=== PATIENT | female | born 1995 | race Caucasian/White ===

== ENCOUNTER 2019-06-12 11:18 | Outpatient (CLI) | payer OTHER ==
--- NOTE | 2019-06-12 15:30 | CT Report ---
Reason: RIGHT FLANK PAIN Procedure Date: 06/12/2019 Accession Number: [id number] / [id number] Procedure: CT - Abdomen/Pelvis WO CPT Code: Addended Final Report FULL RESULT: EXAM: CT ABDOMEN AND PELVIS (CT KUB) EXAM DATE: 06/12/2019 03:09 PM. CLINICAL HISTORY: RIGHT FLANK PAIN. COMPARISONS: None. TECHNIQUE: Routine axial helical CT imaging was performed through the abdomen and pelvis without IV contrast. Reconstructions: Coronal and sagittal. In accordance with CT protocol optimization, one or more of the following dose reduction techniques were utilized for this exam: automated exposure control, adjustment of mA and/or KV based on patient size, or use of iterative reconstructive technique. FINDINGS: Lung Bases: Unremarkable. Right Kidney/Ureter: No stones, hydronephrosis, or hydroureter. No perinephric fat stranding. Left Kidney/Ureter: No stones, hydronephrosis, or hydroureter. No perinephric fat stranding. Other Solid Organs: Noncontrast images of the solid organs are grossly unremarkable. Gallbladder/Bile Ducts: Unremarkable. Peritoneal Cavity: No free fluid, free air or rubina adenopathy. Bowel is grossly unremarkable. Pelvic Organs: No bladder stones or wall thickening. Noncontrast images of the visualized pelvic organs are unremarkable. Vasculature: Unremarkable. Other: There is trace free fluid in the right posterior cul-de-sac, presumed physiologic. IMPRESSION: No urinary tract stones or obstruction. No ovarian cyst or bowel obstruction identified. No evidence of appendicitis. Trace free fluid in the right posterior cul-de-sac, presumed physiologic. RADIA The call report notification system was initiated by Dr. Evan Munoz at 03:28 PM on 06/12/2019. ADDENDUM: 06/12/19 15:36 The above call report findings were discussed with Dr Rosa's nurse by Dr. Evan Munoz at 03:36 PM on 06/12/2019.
== END 2019-06-12 11:19 | disposition home or self-care (01) ==
LOC: DI 11:18
PROVIDERS: ATTEND Urology
DX: R10.9 Unspecified abdominal pain (principal); Z87.440 Personal history of urinary (tract) infections
CPT/HCPCS: 74176; 81001; 87086; 87181

== ENCOUNTER 2019-06-12 14:32 | Outpatient (CLI) | payer OTHER ==
[2019-06-12 15:20] LABS: BILIRUBIN,URINE NEGATIVE (NEGATIVE); GLUCOSE, URINE (UA) NEGATIVE (NEGATIVE); KETONES,URINE (UA) NEGATIVE (NEGATIVE); LEUKOCYTE ESTERASE, URINE MODERATE (NEGATIVE); NITRITE,URINE POSITIVE (NEGATIVE); OCCULT BLOOD,URINE LARGE (NEGATIVE); PH,URINE 6.5 PH (5.0-7.5); PROTEIN,URINE >=300 mg/dL (NEGATIVE); UROBILINOGEN,URINE 0.2 (NORMAL) E.U./dL (NORMAL)
[2019-06-12 15:30] LABS: BACTERIA,URINE Many /HPF (None Seen); CLARITY,URINE CLOUDY (CLEAR); SQUAMOUS EPITHELIAL CELL,UR RARE Squamous (<= Few); WBC CLUMPS,URINE PRESENT
== END 2019-06-12 14:33 | disposition home or self-care (01) ==
LOC: LAB 14:32
PROVIDERS: ATTEND Urology
DX: R10.9 Unspecified abdominal pain (principal); Z87.440 Personal history of urinary (tract) infections
CPT/HCPCS: 81001; 87086; 87181

== ENCOUNTER 2020-01-24 19:03 | Emergency (ER) | payer OTHER ==
--- NOTE | 2020-01-24 19:30 | ED Physician Documentation ---
PD HPI NVD - Stated complaint Stated Complaint: NAUSEA,FATIGUE,VOMITING - Chief complaint Chief Complaint: Abd Pain - History obtained from History obtained from: Patient - Additonal information Additional information: 24-year-old G1, P1 presents with 3 weeks of generally worsening nausea converting to some vomiting about a week ago with occasional pelvic cramping and back pain. No breast tenderness. No fevers, sore throat. She has had some headaches but generally when she is at work due to stress. Is not quite sure when her last menses was, does not track it per se. Sounds like she is probably late though, has not had a test. Review of Systems Constitutional: reports: Fatigue. denies: Fever, Chills Ears: denies: Ear pain Nose: denies: Rhinorrhea / runny nose Throat: denies: Sore throat Cardiac: denies: Chest pain / pressure, Palpitations Respiratory: denies: Dyspnea, Cough GI: denies: Abdominal Pain PD PAST MEDICAL HISTORY - Past Medical History Past Medical History: Yes - Past Surgical History Past Surgical History: No - Present Medications Home Medications: Ambulatory Orders Medication Instructions Recorded Confirmed Metoclopramide [Reglan] 10 mg PO Q6H PRN #20 tablet 01/24/20 Multivitamin with Folic Acid [High 400 mcg PO DAILY #90 tablet 01/24/20 Potency Multivitamin Tab] - Allergies Allergies/Adverse Reactions: Allergies Allergy/AdvReac Type Severity Reaction Status Date / Time clindamycin Allergy Unknown Verified 01/24/20 19:22 - Social History Does the pt smoke?: No Smoking Status: Never smoker Does the pt drink ETOH?: No Does the pt have substance abuse?: No - Immunizations Immunizations are current?: Yes PD ED PE NORMAL - Vitals Vital signs reviewed: Yes - General General: Alert and oriented X 3, No acute distress - HEENT HEENT: PERRL, EOMI - Neck Neck: Supple, no meningeal sign, No bony TTP - Cardiac Cardiac: RRR, No murmur - Respiratory Respiratory: No respiratory distress, Clear bilaterally - Abdomen Abdomen: Normal bowel sounds, Soft, Non tender - Back Back: No spinal TTP - Derm Derm: Normal color, Warm and dry - Extremities Extremities: No edema, No calf tenderness / cord - Neuro Neuro: Alert and oriented X 3, Normal speech Results - Vitals Vitals: Vital Signs - 24 hr 01/24/20 19:11 Temperature 36.9 C Heart Rate 102 H Respiratory 18 Rate Blood Pressure 131/75 H O2 Saturation 100 Oxygen O2 Source Room air - Labs Labs: Laboratory Tests 01/24/20 01/24/20 01/24/20 19:21 19:23 19:23 WBC 7.8 RBC 4.66 Hgb 13.9 Hct 40.5 MCV 86.9 MCH 29.8 MCHC 34.3 RDW 12.5 Plt Count 270 MPV 8.8 Neut # (Auto) 5.5 Lymph # (Auto) 1.6 Webb # (Auto) 0.5 Eos # (Auto) 0.1 Baso # (Auto) 0.0 Absolute Nucleated RBC 0.00 Nucleated RBC % 0.0 Sodium Potassium Chloride Carbon Dioxide Anion Gap BUN Creatinine Estimated GFR (MDRD) Glucose Calcium Total Bilirubin AST ALT Alkaline Phosphatase Total Protein Albumin Globulin Albumin/Globulin Ratio Lipase Urine Color YELLOW Urine Clarity SL. CLOUDY Urine pH 7.0 Ur Specific [place] 1.020 Urine Protein NEGATIVE Urine Glucose (UA) NEGATIVE Urine Ketones NEGATIVE Urine Occult Blood NEGATIVE Urine Nitrite NEGATIVE Urine Bilirubin NEGATIVE Urine Urobilinogen 0.2 (NORMAL) Ur Leukocyte Esterase TRACE H Ur Microscopic Review INDICATED Urine Culture Comments Not Reportable Urine HCG, Qual POSITIVE Infectious Webb Assay NEGATIVE 01/24/20 19:23 WBC RBC Hgb Hct MCV MCH MCHC RDW Plt Count MPV Neut # (Auto) Lymph # (Auto) Webb # (Auto) Eos # (Auto) Baso # (Auto) Absolute Nucleated RBC Nucleated RBC % Sodium 135 Potassium 3.2 L Chloride 102 Carbon Dioxide 24 Anion Gap 9.0 BUN 8 Creatinine 0.5 Estimated GFR (MDRD) 153 Glucose 134 H Calcium 9.6 Total Bilirubin 1.4 H AST 15 ALT 12 Alkaline Phosphatase 58 Total Protein 7.8 Albumin 4.3 Globulin 3.5 Albumin/Globulin Ratio 1.2 Lipase 27 Urine Color Urine Clarity Urine pH Ur Specific [place] Urine Protein Urine Glucose (UA) Urine Ketones Urine Occult Blood Urine Nitrite Urine Bilirubin Urine Urobilinogen Ur Leukocyte Esterase Ur Microscopic Review Urine Culture Comments Urine HCG, Qual Infectious Webb Assay PD MEDICAL DECISION MAKING - ED course ED course: She presents with nausea and worsening vomiting with unknown last menses and is found to be . She does not desire this , and would like to exp saad options for termination. I discussed the case with Dr. Deisy Yeung, OB on-call. They do do medical abortions, and Deisy will see her tomorrow to discuss options. Departure - Departure Disposition: Home, Self Care Clinical Impression: Qualifiers: Weeks of gestation: unspecified Qualified Code(s): Z34.90 - Encounter for supervision of normal , unspecified, unspecified trimester Condition: Good Record reviewed to determine appropriate education?: Yes Instructions: ED Preg Established Normal Sxs Follow-Up: Deisy Yeung MD [Provider Admit Priv/Credential] - Prescriptions: Multivitamin with Folic Acid [High Potency Multivitamin Tab] 400 mcg PO DAILY #90 tablet Metoclopramide [Reglan] 10 mg PO Q6H PRN #20 tablet PRN Reason: nausea or headache Comments: Dr. Deisy Yeung would like to see you tomorrow at 1230 in her office to discuss options. She is aware of your case. The phone number and address are above.
[2020-01-24 19:34] LABS: BASOPHILS % (AUTO) 0.4 %; EOSINOPHILS # (AUTO) 0.1 10^3/uL (0.0-0.7); EOSINOPHILS % (AUTO) 1.3 %; HGB - HEMOGLOBIN 13.9 g/dL (12.0-16.0); LYMPHOCYTES # (AUTO) 1.6 10^3/uL (1.5-3.5); LYMPHOCYTES % (AUTO) 20.8 %; MEAN CORPUSCULAR HEMOGLOBIN 29.8 pg (27.0-31.0); MEAN CORPUSCULAR HGB CONC 34.3 g/dL (32.0-36.0); MEAN CORPUSCULAR VOLUME 86.9 fL (81.0-99.0); MEAN PLATELET VOLUME 8.8 fL (7.9-10.8); MONOCYTES # (AUTO) 0.5 10^3/uL (0.0-1.0); MONOCYTES % (AUTO) 5.9 %; NEUTROPHILS # (AUTO) 5.5 10^3/uL (1.5-6.6); NEUTROPHILS % (AUTO) 71.2 %; PLT - PLATELET COUNT 270 10^3/uL (130-450); RED BLOOD COUNT 4.66 10^6/uL (4.20-5.40); RED CELL DISTRIBUTION WIDTH 12.5 % (12.0-15.0); WHITE BLOOD COUNT 7.8 x10^3/uL (4.8-10.8)
[2020-01-24 19:41] LABS: BILIRUBIN,URINE NEGATIVE (NEGATIVE); GLUCOSE, URINE (UA) NEGATIVE (NEGATIVE); KETONES,URINE (UA) NEGATIVE (NEGATIVE); LEUKOCYTE ESTERASE, URINE TRACE (NEGATIVE); NITRITE,URINE NEGATIVE (NEGATIVE); OCCULT BLOOD,URINE NEGATIVE (NEGATIVE); PROTEIN,URINE NEGATIVE (NEGATIVE); UROBILINOGEN,URINE 0.2 (NORMAL) E.U./dL (NORMAL)
[2020-01-24 19:42] LABS: CLARITY,URINE SL. CLOUDY (CLEAR); HCG UR QUAL POSITIVE
[2020-01-24 19:47] LABS: ALBUMIN 4.3 g/dL (3.2-5.5); ALBUMIN/GLOBULIN RATIO 1.2 (1.0-2.2); BILIRUBIN,TOTAL 1.4 mg/dL (0.2-1.0); CALCIUM 9.6 mg/dL (8.5-10.3); CREATININE 0.5 mg/dL (0.4-1.0); TOTAL PROTEIN 7.8 g/dL (6.7-8.2)
[2020-01-24 20:21] LABS: RBC,URINE None Seen /HPF (0-5); SQUAMOUS EPITHELIAL CELL,UR MOD Squamous (<= Few)
[2020-01-24 20:22] LABS: BACTERIA,URINE Many /HPF (None Seen); MUCUS,URINE Moderate Strands
[2020-01-24 20:25] VITALS: BP 118/83
== END 2020-01-24 20:25 | disposition home or self-care (01) ==
LOC: ED 19:03
DX: O21.0 Mild hyperemesis gravidarum (principal); Z3A.00 Weeks of gestation of pregnancy not specified
CPT/HCPCS: 36415; 80053; 81001; 81003; 81025; 83690; 85025; 86308; 87086; 99283; 99284

== ENCOUNTER 2020-01-25 13:31 | Outpatient (CLI) | payer OTHER | END 2020-01-25 13:32 | disposition home or self-care (01) | LOC: LAB 13:31 | PROVIDERS: ATTEND Obstetrics & Gynecology | DX: Z32.01 Encounter for pregnancy test, result positive (principal) | CPT/HCPCS: 36415; 86900; 86901 ==

== ENCOUNTER 2020-03-07 20:12 | Emergency (ER) | payer OTHER ==
[2020-03-07 20:47] LABS: BASOPHILS % (AUTO) 0.5 %; EOSINOPHILS # (AUTO) 0.3 10^3/uL (0.0-0.7); EOSINOPHILS % (AUTO) 4.1 %; HGB - HEMOGLOBIN 13.5 g/dL (12.0-16.0); LYMPHOCYTES # (AUTO) 2.3 10^3/uL (1.5-3.5); LYMPHOCYTES % (AUTO) 38.4 %; MEAN CORPUSCULAR HEMOGLOBIN 28.8 pg (27.0-31.0); MEAN CORPUSCULAR HGB CONC 32.6 g/dL (32.0-36.0); MEAN CORPUSCULAR VOLUME 88.5 fL (81.0-99.0); MONOCYTES # (AUTO) 0.6 10^3/uL (0.0-1.0); MONOCYTES % (AUTO) 9.2 %; NEUTROPHILS # (AUTO) 2.9 10^3/uL (1.5-6.6); NEUTROPHILS % (AUTO) 47.8 %; PLT - PLATELET COUNT 274 10^3/uL (130-450); RED BLOOD COUNT 4.68 10^6/uL (4.20-5.40); RED CELL DISTRIBUTION WIDTH 12.6 % (12.0-15.0); WHITE BLOOD COUNT 6.1 x10^3/uL (4.8-10.8)
[2020-03-07 20:54] LABS: BILIRUBIN,URINE NEGATIVE (NEGATIVE); GLUCOSE, URINE (UA) NEGATIVE (NEGATIVE); KETONES,URINE (UA) NEGATIVE (NEGATIVE); LEUKOCYTE ESTERASE, URINE TRACE (NEGATIVE); NITRITE,URINE NEGATIVE (NEGATIVE); OCCULT BLOOD,URINE MODERATE (NEGATIVE); PROTEIN,URINE NEGATIVE (NEGATIVE); UROBILINOGEN,URINE 0.2 (NORMAL) E.U./dL (NORMAL)
[2020-03-07 20:57] LABS: CLARITY,URINE CLEAR (CLEAR); HCG UR QUAL POSITIVE
[2020-03-07 21:01] LABS: ALBUMIN 4.4 g/dL (3.2-5.5); ALBUMIN/GLOBULIN RATIO 1.3 (1.0-2.2); BILIRUBIN,TOTAL 0.9 mg/dL (0.2-1.0); CALCIUM 9.8 mg/dL (8.5-10.3); CREATININE 0.6 mg/dL (0.4-1.0); TOTAL PROTEIN 7.9 g/dL (6.7-8.2)
[2020-03-07 21:04] LABS: BACTERIA,URINE Few /HPF (None Seen); MUCUS,URINE Few Strands; RBC,URINE 0-5 /HPF (0-5); SQUAMOUS EPITHELIAL CELL,UR MOD Squamous (<= Few)
--- NOTE | 2020-03-07 21:24 | ED Physician Documentation ---
PD HPI FEMALE - Stated complaint Stated Complaint: FEMALE - Chief complaint Chief Complaint: Abd Pain - History obtained from History obtained from: Patient - History of Present Illness Timing - onset: How many weeks ago (6) Timing - duration: Weeks (6) Timing - details: Gradual onset, Still present (She was seen for some lower abdominal cramping and was found to be January 23 and was seen in the office January 24 for elective termination done medically. She states she did not have the 2-week follow-up due to insurance issues. She tried to go to [facility] but they deferred back to here.), Waxing and waning Associated symptoms: Pelvic pain (cramping), Vaginal bleeding, Vaginal discharge. No: Fever, Back pain, Dysuria Contributing factors: Other (was early January.). 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 Pt tried to see [facility] but they deferred back to OG/MASK LAYOUT DESIGNER here and would not give her appt. Pt just waited to see if things would improve. She has had increased cramps recently and now milky vag discharge.) Review of Systems Constitutional: denies: Fever, Chills, Myalgias Nose: denies: Rhinorrhea / runny nose, Congestion Throat: denies: Sore throat Respiratory: denies: Cough PD PAST MEDICAL HISTORY - Past Surgical History Past Surgical History: No - Present Medications Home Medications: Ambulatory Orders Medication Instructions Recorded Confirmed Metoclopramide [Reglan] 10 mg PO Q6H PRN #20 tablet 01/24/20 Multivitamin with Folic Acid [High 400 mcg PO DAILY #90 tablet 01/24/20 Potency Multivitamin Tab] HYDROcod/ACETAM 5/325 [[place] 5/325] 1 ea PO Q6H PRN #10 tablet 03/07/20 metroNIDAZOLE [Flagyl] 500 mg PO BID #20 tablet 03/07/20 - Allergies Allergies/Adverse Reactions: Allergies Allergy/AdvReac Type Severity Reaction Status Date / Time clindamycin Allergy Unknown Verified 03/07/20 20:28 - Social History Does the pt smoke?: No Smoking Status: Never smoker Does the pt drink ETOH?: No Does the pt have substance abuse?: No - Immunizations Immunizations are current?: Yes PD ED PE NORMAL - Vitals Vital signs reviewed: Yes - General General: Alert and oriented X 3, No acute distress, Well developed/nourished - Cardiac Cardiac: RRR, No murmur - Respiratory Respiratory: Clear bilaterally - Abdomen Abdomen: Soft, Non distended, Other (some tenderness suprapubic/low abd without percussion nor rebound tenderness. ) - Female Female : Deferred - Back Back: No CVA TTP - Derm Derm: Normal color, Warm and dry - Neuro Neuro: Alert and oriented X 3, No motor deficit, Normal speech Results - Vitals Vitals: Vital Signs - 24 hr 03/07/20 03/07/20 03/08/20 20:28 22:32 00:00 Temperature 36.5 C 36.6 C 36.8 C Heart Rate 97 80 88 Respiratory 16 18 18 Rate Blood Pressure 131/76 H 126/77 115/88 H O2 Saturation 100 99 99 Oxygen O2 Source Room air - Labs Labs: Laboratory Tests 03/07/20 03/07/20 03/07/20 20:40 20:44 20:44 WBC 6.1 RBC 4.68 Hgb 13.5 Hct 41.4 MCV 88.5 MCH 28.8 MCHC 32.6 RDW 12.6 Plt Count 274 MPV 9.0 Neut # (Auto) 2.9 Lymph # (Auto) 2.3 [place] # (Auto) 0.6 Eos # (Auto) 0.3 Baso # (Auto) 0.0 Absolute Nucleated RBC 0.00 Nucleated RBC % 0.0 Sodium 140 Potassium 3.6 Chloride 103 Carbon Dioxide 29 Anion Gap 8.0 BUN 10 Creatinine 0.6 Estimated GFR (MDRD) 124 Glucose 99 Calcium 9.8 Total Bilirubin 0.9 AST 17 ALT 14 Alkaline Phosphatase 75 Total Protein 7.9 Albumin 4.4 Globulin 3.5 Albumin/Globulin Ratio 1.3 Lipase 36 HCG, Quant Urine Color YELLOW Urine Clarity CLEAR Urine pH 7.0 Ur Specific [place] 1.020 Urine Protein NEGATIVE Urine Glucose (UA) NEGATIVE Urine Ketones NEGATIVE Urine Occult Blood MODERATE H Urine Nitrite NEGATIVE Urine Bilirubin NEGATIVE Urine Urobilinogen 0.2 (NORMAL) Ur Leukocyte Esterase TRACE H Urine RBC 0-5 Urine WBC 0-3 Ur Squamous Epith Cells MOD Squamous H Urine Bacteria Few Urine Mucus Few Strands Ur Microscopic Review INDICATED Urine Culture Comments NOT INDICATED Urine HCG, Qual POSITIVE C. glabrata (PCR) C. krusei (PCR) Sandra species DNA T. vaginalis (PCR) Bact Vaginosis (PCR) 03/07/20 03/07/20 20:44 23:43 WBC RBC Hgb Hct MCV MCH MCHC RDW Plt Count MPV Neut # (Auto) Lymph # (Auto) [place] # (Auto) Eos # (Auto) Baso # (Auto) Absolute Nucleated RBC Nucleated RBC % Sodium Potassium Chloride Carbon Dioxide Anion Gap BUN Creatinine Estimated GFR (MDRD) Glucose Calcium Total Bilirubin AST ALT Alkaline Phosphatase Total Protein Albumin Globulin Albumin/Globulin Ratio Lipase HCG, Quant 121.41 Urine Color Urine Clarity Urine pH Ur Specific [place] Urine Protein Urine Glucose (UA) Urine Ketones Urine Occult Blood Urine Nitrite Urine Bilirubin Urine Urobilinogen Ur Leukocyte Esterase Urine RBC Urine WBC Ur Squamous Epith Cells Urine Bacteria Urine Mucus Ur Microscopic Review Urine Culture Comments Urine HCG, Qual C. glabrata (PCR) NEGATIVE C. krusei (PCR) NEGATIVE Sandra species DNA POSITIVE A T. vaginalis (PCR) NEGATIVE Bact Vaginosis (PCR) POSITIVE A - Rads (name of study) pelvic OB U/S Radiology: Prelim report reviewed (Focal thickness and hyperemia of the endometrium near the fundus with findings concerning for retained products.), See rad report PD MEDICAL DECISION MAKING - ED course Complexity details: reviewed results (Labs are good. She did self swab for BV screen and the results are pending. She still has a quantitative level of 121 and an ultrasound showing possible persistent retained products.), re-evaluated patient (I told the patient of the likely plan for D&C and to treat for possible early bacterial vaginosis as well.), considered differential (Concern for incomplete miscarriage given ongoing cramps and pain and discharge. Consider early endometritis. Will check labs and ultrasound.), d/w patient, d/w business process consultant (Dr. Waggoner who will see the patient in the office within 1 to 2 days. Presumably they will see her in the office this coming day with potential for D&C on Saturday.) ED course: Respiratory panel in particular Covid testing was done in anticipation of a D&C in the next couple of days. Departure - Departure Disposition: 01 Home, Self Care Clinical Impression: Retained products of conception after miscarriage, Vaginal bleeding Vaginitis Qualifiers: Chronicity: acute Qualified Code(s): N76.0 - Acute vaginitis Condition: Stable Record reviewed to determine appropriate education?: Yes Follow-Up: Trice Waggoner MD [Provider Admit Priv/Credential] - Deisy Yeung MD [Provider Admit Priv/Credential] - Prescriptions: metroNIDAZOLE [Flagyl] 500 mg PO BID #20 tablet HYDROcod/ACETAM 5/325 [[place] 5/325] 1 ea PO Q6H PRN #10 tablet PRN Reason: Pain Comments: Call the hooker operator office tomorrow to follow-up with either Dr. Yeung or Dr. Waggoner. The likely planned next step would be a gynecologic procedure called a D&C to complete the miscarriage and remove the retained products. Metronidazole antibiotic for likely bacterial vaginitis. The culture result will be available tomorrow. Stay well-hydrated. Tylenol ibuprofen if needed for pains. Add hydrocodone if needed for worse cramps. Off work for the next few days. Call the hooker operator office tomorrow and let the office personnel know that you need to be seen tomorrow or the day after at most. Forms: Activity restrictions Discharge Date/Time: 03/08/20 00:29
[2020-03-07] MEDS ORDERED: metroNIDAZOLE 250 MG TABLET PO STA (22:51)
[2020-03-07] MEDS: HYDROcod/ACET 5/325 Prepack 4 PO STA (23:45)
[2020-03-07] MEDS ORDERED: IBUPROFEN 600 MG TABLET PO STA (23:47)
[2020-03-08] MEDS: HYDROcod/ACETAM 5/325 MG TABLET PO STA ×2 (00:09→00:16)
[2020-03-08] MEDS: HYDROcod/ACET 5/325 Prepack 4 PO STA (00:16)
[2020-03-08 00:28] VITALS: BP 115/88
[2020-03-08 01:58] LABS: CANDIDA GROUP DNA POSITIVE (NEGATIVE); CANDIDA KRUSEI DNA NEGATIVE (NEGATIVE); TRICHOMONAS VAGINALIS DNA NEGATIVE (NEGATIVE)
--- NOTE | 2020-03-08 08:43 | Ultrasound Report ---
PROCEDURE: OB First Trimester INDICATIONS: bleeding s/p ab OUTSIDE/PRIOR DATING DATA: Last menstrual period (LMP): Unknown LMP-based estimated date of delivery (BUSTER): Unknown. First dating scan (date and location): 03/07/2020. Estimated date of delivery (BUSTER) from first dating scan: Not applicable. TECHNIQUE: Real-time scanning was performed of the fetus and maternal pelvic organs, with image documentation. COMPARISON: None FINDINGS: There is no visualized intrauterine or extrauterine identified. Trace fluid is noted within the lower pelvis. The endometrium particularly at the fundus is thickened and heterogeneous in appea hattie. There is increased vascularity identified. Maternal organs: Right ovary measures 2.6 x 2.6 x 4.1 cm. And is unremarkable. Vascular flow is ident ified. Left ovary measures 4.1 x 2.0 x 3.3 cm. It is unremarkable. Vascular flow is identified. Limit ed images through the kidneys demonstrate no hydronephrosis. IMPRESSION: 1. Focal thickening of the endometrium with increased vascularity and overall heterogeneous appearanc e. Given history of recent , appearance is suspicious for retained products of conception. The above findings are concordant with preliminary report. Reviewed by: Vijaya Rivera MD on 03/08/2020 8:42 AM PST Approved by: Vijaya Rivera MD on 03/08/2020 8:42 AM PST Station ID: [id number]
--- NOTE | 2020-03-08 08:45 | Ultrasound Report ---
PROCEDURE: OB Transvaginal INDICATIONS: bleeding s/p ab OUTSIDE/PRIOR DATING DATA: Last menstrual period (LMP): Unknown LMP-based estimated date of delivery (BUSTER): Unknown. First dating scan (date and location): 03/07/2020. Estimated date of delivery (BUSTER) from first dating scan: Not applicable. TECHNIQUE: Real-time scanning was performed of the fetus and maternal pelvic organs, with image documentation. COMPARISON: None FINDINGS: There is no visualized intrauterine or extrauterine identified. Trace fluid is noted within the lower pelvis. The endometrium particularly at the fundus is thickened and heterogeneous in appea hattie. There is increased vascularity identified. Maternal organs: Right ovary measures 2.6 x 2.6 x 4.1 cm. And is unremarkable. Vascular flow is ident ified. Left ovary measures 4.1 x 2.0 x 3.3 cm. It is unremarkable. Vascular flow is identified. Limit ed images through the kidneys demonstrate no hydronephrosis. IMPRESSION: 1. Focal thickening of the endometrium with increased vascularity and overall heterogeneous appearanc e. Given history of recent , appearance is suspicious for retained products of conception. The above findings are concordant with preliminary report. Reviewed by: Vijaya Rivera MD on 03/08/2020 8:43 AM PST Approved by: Vijaya Rivera MD on 03/08/2020 8:43 AM PST Station ID: [id number]
== END 2020-03-08 00:29 | disposition home or self-care (01) ==
LOC: ED 20:12
DX: O07.1 Delayed or excessive hemorrhage following failed attempted termination of pregnancy (principal); N76.0 Acute vaginitis; B96.89 Other specified bacterial agents as the cause of diseases classified elsewhere; Z20.822 Contact with and (suspected) exposure to COVID-19
CPT/HCPCS: 36415; 76801; 76817; 80053; 81001; 81025; 83690; 84702; 85025; 87481; 87635; 87661; 87801; 99284; A9270; 81003; 86900; 86901; 87086

== ENCOUNTER 2020-03-15 08:38 | Outpatient (CLI) | payer OTHER | END 2020-03-15 08:39 | disposition home or self-care (01) | LOC: LAB 08:38 | PROVIDERS: ATTEND Obstetrics & Gynecology | DX: O03.9 Complete or unspecified spontaneous abortion without complication (principal) | CPT/HCPCS: 36415; 84702 ==

== ENCOUNTER 2020-03-24 19:32 | Outpatient (CLI) | payer OTHER | END 2020-03-24 19:33 | disposition home or self-care (01) | LOC: LAB 19:32 | PROVIDERS: ATTEND Obstetrics & Gynecology | DX: O03.9 Complete or unspecified spontaneous abortion without complication (principal) | CPT/HCPCS: 36415; 84702 ==

== ENCOUNTER 2020-03-31 19:17 | Outpatient (CLI) | payer OTHER | END 2020-03-31 19:18 | disposition home or self-care (01) | LOC: LAB 19:17 | PROVIDERS: ATTEND Obstetrics & Gynecology | DX: O03.9 Complete or unspecified spontaneous abortion without complication (principal) | CPT/HCPCS: 36415; 84702 ==

== ENCOUNTER 2020-04-07 21:33 | Emergency (ER) | payer OTHER ==
[2020-04-07 21:55] LABS: BILIRUBIN,URINE NEGATIVE (NEGATIVE); GLUCOSE, URINE (UA) NEGATIVE (NEGATIVE); KETONES,URINE (UA) NEGATIVE (NEGATIVE); LEUKOCYTE ESTERASE, URINE TRACE (NEGATIVE); NITRITE,URINE NEGATIVE (NEGATIVE); OCCULT BLOOD,URINE LARGE (NEGATIVE); PROTEIN,URINE NEGATIVE (NEGATIVE); UROBILINOGEN,URINE 0.2 (NORMAL) E.U./dL (NORMAL)
[2020-04-07 21:58] LABS: CLARITY,URINE CLEAR (CLEAR); HCG UR QUAL NEGATIVE
[2020-04-07 22:08] LABS: BACTERIA,URINE Few /HPF (None Seen); MUCUS,URINE Few Strands; SQUAMOUS EPITHELIAL CELL,UR MOD Squamous (<= Few)
--- NOTE | 2020-04-07 22:44 | ED Physician Documentation ---
PD HPI FEMALE - Stated complaint Stated Complaint: RASH - Chief complaint Chief Complaint: General - History obtained from History obtained from: Patient - History of Present Illness Timing - onset: How many days ago (few) Timing - duration: Days (few) Timing - details: Gradual onset, Still present Associated symptoms: Vaginal pain (irritation and tender inner labia), Vaginal bleeding (had had bleeding last month s/p termination . Still with bleeding and cramps, with repeat HCG 121. Seen by OB and had repeat med dose with decreased quant HCG appropriately. Next lab to be done in another week but last one was down to 19. No vag bleed for 1-2 wks, then start 1 week ago.), Vaginal discharge (for several days). No: Fever Contributing factors: Sexually active, Other (had had BV previously and treated with metronidazole and vag discharge improved. Now back again for several days.). No: , control, Exposed to STD OB-PLANS EXAMINER History: G (1), P (0), Termination(s) (1) Recently seen: Clinic (Is being followed by PLANS EXAMINER post termination with serial quant HCGs the past month.) Review of Systems Constitutional: denies: Fever, Chills Nose: denies: Rhinorrhea / runny nose, Congestion Throat: denies: Sore throat Respiratory: denies: Cough GI: reports: Nausea. denies: Vomiting, Diarrhea : reports: Discharge, Vaginal bleeding. denies: Dysuria, Frequency Skin: denies: Rash PD PAST MEDICAL HISTORY - Past Medical History Past Medical History: Yes Cardiovascular: None Respiratory: None Endocrine/Autoimmune: None PLANS EXAMINER: None - Past Surgical History Past Surgical History: Yes - Present Medications Home Medications: Ambulatory Orders Medication Instructions Recorded Confirmed Metoclopramide [Reglan] 10 mg PO Q6H PRN #20 tablet 01/24/20 Multivitamin with Folic Acid [High 400 mcg PO DAILY #90 tablet 01/24/20 Potency Multivitamin Tab] HYDROcod/ACETAM 5/325 [[place] 5/325] 1 ea PO Q6H PRN #10 tablet 03/07/20 metroNIDAZOLE [Flagyl] 500 mg PO BID #20 tablet 03/07/20 Fluconazole [Diflucan] 150 mg PO Q3D #2 tab 04/08/20 Naproxen Sodium 275 mg PO BID #15 tab 04/08/20 Norethindrone AC-Eth Estradiol 1 each PO DAILY 28 Days #1 packet 04/08/20 [Loestrin 21 1-20 Tablet] Tinidazole [Tindamax] 1,000 mg PO DAILY 5 Days #10 tab 04/08/20 - Allergies Allergies/Adverse Reactions: Allergies Allergy/AdvReac Type Severity Reaction Status Date / Time ciprofloxacin Allergy Hives Verified 04/07/20 21:36 clindamycin Allergy Unknown Verified 03/07/20 20:28 - Social History Does the pt smoke?: No Smoking Status: Never smoker Does the pt drink ETOH?: No Does the pt have substance abuse?: No - Immunizations Immunizations are current?: Yes - POLST Patient has POLST: No PD ED PE NORMAL - Vitals Vital signs reviewed: Yes - General General: Alert and oriented X 3, No acute distress, Well developed/nourished - Cardiac Cardiac: RRR, No murmur - Respiratory Respiratory: Clear bilaterally - Abdomen Abdomen: Soft, Non tender - Female Female : Director Housekeeping present (nurse), Other (inner labial and periurethral with redness and irritation. No ulcerations nor vesicles. No yeast like discharge but is uniformly red c/w yeast. Vault with clear/mucoid discharge along with menstrual like blood. No noted cervicitis. ) - Rectal Rectal: Deferred - Back Back: No CVA TTP Results - Vitals Vitals: Vital Signs - 24 hr 04/07/20 04/07/20 04/08/20 21:37 22:13 00:24 Temperature 36.5 C 36.5 C 36.5 C Heart Rate 80 80 78 Respiratory 16 16 16 Rate Blood Pressure 117/79 117/79 115/75 O2 Saturation 100 100 100 Oxygen O2 Source Room air - Labs Labs: Laboratory Tests 04/07/20 04/07/20 04/07/20 21:47 23:54 23:54 Urine Color YELLOW Urine Clarity CLEAR Urine pH 6.0 Ur Specific [place] 1.025 Urine Protein NEGATIVE Urine Glucose (UA) NEGATIVE Urine Ketones NEGATIVE Urine Occult Blood LARGE H Urine Nitrite NEGATIVE Urine Bilirubin NEGATIVE Urine Urobilinogen 0.2 (NORMAL) Ur Leukocyte Esterase TRACE H Urine RBC 6-10 H Urine WBC 0-3 Ur Squamous Epith Cells MOD Squamous H Urine Bacteria Few Urine Mucus Few Strands Ur Microscopic Review INDICATED Urine Culture Comments NOT INDICATED Urine HCG, Qual NEGATIVE C. glabrata (PCR) NEGATIVE C. krusei (PCR) NEGATIVE Sandra species DNA POSITIVE A Chlam trachomat DNA PCR NEGATIVE N.gonorrhoeae DNA (PCR) NEGATIVE T. vaginalis (PCR) NEGATIVE NEGATIVE Bact Vaginosis (PCR) POSITIVE A PD MEDICAL DECISION MAKING - ED course Complexity details: re-evaluated patient (she is allergic to Clnda and had not had clearing of the BV with course of Metronidazole. Will try other med, along with diflucan for yeast. ), considered differential (clinically suspect yeast vaginitis at inner labia and outer vault, with likely recurrent BV in vault. ), d/w patient Departure - Departure Disposition: Home, Self Care Clinical Impression: Vaginal bleeding Vaginitis Qualifiers: Chronicity: acute Qualified Code(s): N76.0 - Acute vaginitis Condition: Stable Record reviewed to determine appropriate education?: Yes Instructions: ED Vaginosis Bacterial Follow-Up: [facility] [Provider Group] [facility] [Provider Group] Prescriptions: Fluconazole [Diflucan] 150 mg PO Q3D #2 tab Norethindrone AC-Eth Estradiol [Loestrin 21 1-20 Tablet] 1 each PO DAILY 28 Days #1 packet Naproxen Sodium 275 mg PO BID #15 tab Tinidazole [Tindamax] 1,000 mg PO DAILY 5 Days #10 tab Comments: The vaginal tests will result in 1 to 2 days. The appearance looks likely to be a yeast infection causing irritation of the inner labia and most likely a continued bacterial vaginitis by clinical exam. We will start treatment for those. We will modify treatment based on the vaginal tests when they result if needed. We can try a different antibiotic for the vaginitis. Also add a antifungal every 3 days for 2 more doses. Naproxen anti-inflammatory twice daily with food for pains and cramps. For the vaginal bleeding/ menstrual type bleeding, you could try starting an oral contraceptive for a month to see if that stops the bleeding now and resets the cycle so to speak. Discharge Date/Time: 04/08/20 00:24
[2020-04-07] MEDS ORDERED: IBUPROFEN 600 MG TABLET PO STA (23:30)
[2020-04-08] MEDS ORDERED: FLUCONAZOLE 100 MG TABLET PO STA (00:03)
[2020-04-08 00:25] VITALS: BP 115/75
[2020-04-08 02:46] LABS: CANDIDA GROUP DNA POSITIVE (NEGATIVE); CANDIDA KRUSEI DNA NEGATIVE (NEGATIVE); TRICHOMONAS VAGINALIS DNA NEGATIVE (NEGATIVE)
[2020-04-08 04:23] LABS: TRICHOMONAS VAGINALIS DNA NEGATIVE (NEGATIVE)
== END 2020-04-08 00:24 | disposition home or self-care (01) ==
LOC: ED 21:33
DX: N76.0 Acute vaginitis (principal); N93.9 Abnormal uterine and vaginal bleeding, unspecified; Z88.1 Allergy status to other antibiotic agents
CPT/HCPCS: 81001; 81025; 87481; 87491; 87591; 87661; 87801; 99283; A9270; 81003; 87086

== ENCOUNTER 2020-05-02 19:58 | Outpatient (CLI) | payer OTHER | END 2020-05-02 19:59 | disposition home or self-care (01) | LOC: LAB 19:58 | PROVIDERS: ATTEND Obstetrics & Gynecology | DX: O03.9 Complete or unspecified spontaneous abortion without complication (principal) | CPT/HCPCS: 36415; 84702 ==

== ENCOUNTER 2020-12-21 18:24 | Emergency (ER) | payer OTHER ==
[2020-12-21 19:34] LABS: BILIRUBIN,URINE NEGATIVE (NEGATIVE); GLUCOSE, URINE (UA) NEGATIVE (NEGATIVE); KETONES,URINE (UA) NEGATIVE (NEGATIVE); LEUKOCYTE ESTERASE, URINE NEGATIVE (NEGATIVE); NITRITE,URINE NEGATIVE (NEGATIVE); OCCULT BLOOD,URINE NEGATIVE (NEGATIVE); PROTEIN,URINE NEGATIVE (NEGATIVE); UROBILINOGEN,URINE 0.2 (NORMAL) E.U./dL (NORMAL)
[2020-12-21 19:49] LABS: CLARITY,URINE CLOUDY (CLEAR)
[2020-12-21 19:53] LABS: AMORPHOUS SEDIMENT,UR Marked /LPF; BACTERIA,URINE None Seen /HPF (None Seen); RBC,URINE 0-5 /HPF (0-5); SQUAMOUS EPITHELIAL CELL,UR NONE SEEN (<= Few); WBC,URINE 0-3 /HPF (0-5)
[2020-12-21 20:12] LABS: BASOPHILS % (AUTO) 0.4 %; EOSINOPHILS # (AUTO) 0.1 10^3/uL (0.0-0.7); EOSINOPHILS % (AUTO) 0.9 %; HCT - HEMATOCRIT 41.8 % (37.0-47.0); HGB - HEMOGLOBIN 13.7 g/dL (12.0-16.0); LYMPHOCYTES # (AUTO) 2.1 10^3/uL (1.5-3.5); MEAN CORPUSCULAR HEMOGLOBIN 29.1 pg (27.0-31.0); MEAN CORPUSCULAR HGB CONC 32.8 g/dL (32.0-36.0); MEAN CORPUSCULAR VOLUME 88.9 fL (81.0-99.0); MEAN PLATELET VOLUME 9.1 fL (7.9-10.8); MONOCYTES # (AUTO) 0.7 10^3/uL (0.0-1.0); NEUTROPHILS # (AUTO) 5.2 10^3/uL (1.5-6.6); NEUTROPHILS % (AUTO) 64.5 %; PLT - PLATELET COUNT 267 10^3/uL (130-450); RED CELL DISTRIBUTION WIDTH 13.8 % (12.0-15.0); WHITE BLOOD COUNT 8.1 x10^3/uL (4.8-10.8)
[2020-12-21 20:25] LABS: CALCIUM 9.1 mg/dL (8.5-10.3); CREATININE 0.6 mg/dL (0.4-1.0)
--- NOTE | 2020-12-21 20:51 | Ultrasound Report ---
PROCEDURE: OB First Trimester w/TV INDICATIONS: pelvic pain, + preg TECHNIQUE: Real-time scanning was performed of the fetus and maternal pelvic organs, with image documentation. Endovaginal scanning was also performed to better visualize the fetus and maternal ovaries. COMPARISON: None FINDINGS: There is no intrauterine gestation seen. Uterus is grossly unremarkable. Right ovary demonstrates a 4 8 mm cyst. Left ovary demonstrates an echogenic focus measuring 13 mm. Endometrium is normal at 8 mm. IMPRESSION: No evidence of intrauterine gestation. Ectopic cannot be excluded. Reviewed by: Bimal Montelongo MD on 12/21/2020 8:50 PM PDT Approved by: Bimal Montelongo MD on 12/21/2020 8:50 PM PDT Station ID: [id number]
--- NOTE | 2020-12-21 21:04 | ED Physician Documentation ---
History of Present Illness - Stated complaint Stated Complaint: ABD PX - Chief complaint Chief Complaint: General - History obtained from History obtained from: Patient - History of Present Illness Timing: Today Pain level max: 0 Pain level now: 0 - Additonal information Additional information: 25-year-old female presents to the emergency department stating she took a positive test at home. She states she was recently treated with antifungal medications and is concerned about the potential . She is unsure if she was when she took those medications. She states the test was positive today. She believes her LMP was at the end of October.She states that she had mild lower abdominal cramping earlier. No vaginal bleeding. 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 - Past Surgical History Past Surgical History: Yes - Present Medications Home Medications: Ambulatory Orders Medication Instructions Recorded Confirmed Metoclopramide [Reglan] 10 mg PO Q6H PRN #20 tablet 01/24/20 Multivitamin with Folic Acid [High 400 mcg PO DAILY #90 tablet 01/24/20 Potency Multivitamin Tab] HYDROcod/ACETAM 5/325 [[place] 5/325] 1 ea PO Q6H PRN #10 tablet 03/07/20 metroNIDAZOLE [Flagyl] 500 mg PO BID #20 tablet 03/07/20 Fluconazole [Diflucan] 150 mg PO Q3D #2 tab 04/08/20 Naproxen Sodium 275 mg PO BID #15 tab 04/08/20 Norethindrone AC-Eth Estradiol 1 each PO DAILY 28 Days #1 packet 04/08/20 [Loestrin 21 1-20 Tablet] Tinidazole [Tindamax] 1,000 mg PO DAILY 5 Days #10 tab 04/08/20 - Allergies Allergies/Adverse Reactions: Allergies Allergy/AdvReac Type Severity Reaction Status Date / Time ciprofloxacin Allergy Hives Verified 12/21/20 18:31 clindamycin Allergy Unknown Verified 12/21/20 18:31 - Social History Does the pt smoke?: No Smoking Status: Never smoker Does the pt drink ETOH?: No Does the pt have substance abuse?: No - Immunizations Immunizations are current?: Yes - POLST Patient has POLST: No PD ED PE NORMAL - Vitals Vital signs reviewed: Yes - General General: Alert and oriented X 3, No acute distress, Well developed/nourished - HEENT HEENT: Moist mucous membranes - Neck Neck: Supple, no meningeal sign - Cardiac Cardiac: RRR, Strong equal pulses - Respiratory Respiratory: No respiratory distress, Clear bilaterally - Abdomen Abdomen: Soft, Non tender, Non distended - Derm Derm: Warm and dry - Extremities Extremities: No edema - Neuro Neuro: Alert and oriented X 3 - Psych Psych: Normal mood, Normal affect Results - Vitals Vitals: Vital Signs - 24 hr 12/21/20 12/21/20 18:27 21:07 Temperature 37.1 C Heart Rate 101 H 88 Respiratory 16 16 Rate Blood Pressure 128/84 H 133/76 H O2 Saturation 97 99 Oxygen O2 Source Room air - Labs Labs: Laboratory Tests 12/21/20 12/21/20 12/21/20 19:24 20:08 20:08 WBC RBC Hgb Hct MCV MCH MCHC RDW Plt Count MPV Neut # (Auto) Lymph # (Auto) [place] # (Auto) Eos # (Auto) Baso # (Auto) Absolute Nucleated RBC Nucleated RBC % Sodium Potassium Chloride Carbon Dioxide Anion Gap BUN Creatinine Estimated GFR (MDRD) Glucose Calcium HCG, Quant 15.47 Urine Color YELLOW Urine Clarity CLOUDY Urine pH 8.0 H Ur Specific [place] 1.020 Urine Protein NEGATIVE Urine Glucose (UA) NEGATIVE Urine Ketones NEGATIVE Urine Occult Blood NEGATIVE Urine Nitrite NEGATIVE Urine Bilirubin NEGATIVE Urine Urobilinogen 0.2 (NORMAL) Ur Leukocyte Esterase NEGATIVE Urine RBC 0-5 Urine WBC 0-3 Ur Squamous Epith Cells NONE SEEN Amorphous Sediment Marked Urine Bacteria None Seen Ur Microscopic Review INDICATED Urine Culture Comments NOT INDICATED Blood Type O POSITIVE 12/21/20 12/21/20 20:08 20:08 WBC 8.1 RBC 4.70 Hgb 13.7 Hct 41.8 MCV 88.9 MCH 29.1 MCHC 32.8 RDW 13.8 Plt Count 267 MPV 9.1 Neut # (Auto) 5.2 Lymph # (Auto) 2.1 [place] # (Auto) 0.7 Eos # (Auto) 0.1 Baso # (Auto) 0.0 Absolute Nucleated RBC 0.00 Nucleated RBC % 0.0 Sodium 135 Potassium 4.0 Chloride 101 Carbon Dioxide 26 Anion Gap 8.0 BUN 10 Creatinine 0.6 Estimated GFR (MDRD) 123 Glucose 95 Calcium 9.1 HCG, Quant Urine Color Urine Clarity Urine pH Ur Specific [place] Urine Protein Urine Glucose (UA) Urine Ketones Urine Occult Blood Urine Nitrite Urine Bilirubin Urine Urobilinogen Ur Leukocyte Esterase Urine RBC Urine WBC Ur Squamous Epith Cells Amorphous Sediment Urine Bacteria Ur Microscopic Review Urine Culture Comments Blood Type - Rads (name of study) OB US Radiology: Final report received, EMP read contemporaneously, See rad report (No evidence of intrauterine gestation. Ectopic cannot be excluded.) PD MEDICAL DECISION MAKING - ED course Complexity details: reviewed results, re-evaluated patient, considered differential, d/w patient ED course: 25-year-old female with a minimally elevated beta hCG. Unclear if this is rising or falling. Recommend repeat hCG in 3 days with her doctor. Patient is asymptomatic here. No evidence of ectopic. Patient counseled regarding signs and symptoms for which I believe and urgent re-evaluation would be necessary. Patient with good understanding of and agreement to plan and is comfortable going home at this time This document was made in part using voice recognition software. While efforts are made to proofread this document, sound alike and grammatical errors may occur. Departure - Departure Disposition: 01 Home, Self Care Clinical Impression: Qualifiers: Weeks of gestation: less than 8 weeks Qualified Code(s): Z3A.01 - Less than 8 weeks gestation of Condition: Good Instructions: ED Care Follow-Up: your,doctor in 3 days for repeat HCG [Other] Comments: Your test is positive today. Your quantitative hCG is 15.5. You will need this repeated in 3 days to see if this is going up or going down. Please return if you worsen. Follow-up with your doctor for further care. Return if you worsen. Discharge Date/Time: 12/21/20 21:07
[2020-12-21 21:08] VITALS: BP 133/76
== END 2020-12-21 21:07 | disposition home or self-care (01) ==
LOC: ED 18:24
DX: O99.891 Other specified diseases and conditions complicating pregnancy (principal); R10.30 Lower abdominal pain, unspecified; Z3A.01 Less than 8 weeks gestation of pregnancy
CPT/HCPCS: 36415; 80048; 81001; 81003; 84702; 85025; 86900; 86901; 87086; 99282; 99284